=== PATIENT | male | born 1970 | race American Indian/Alaskan Native ===

== ENCOUNTER 2019-12-13 21:49 | Emergency (ER) | payer SELFPAY ==
[2019-12-13] MEDS ORDERED: IBUPROFEN 800 MG TAB PO ONE (21:59)
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
[2019-12-14 00:03] VITALS: BP 143/92
== END 2019-12-13 23:39 | disposition home or self-care (01) ==
LOC: ED 21:49
DX: M54.9 Dorsalgia, unspecified (principal); M25.552 Pain in left hip; I10 Essential (primary) hypertension; E11.9 Type 2 diabetes mellitus without complications; Z79.899 Other long term (current) drug therapy; Z79.84 Long term (current) use of oral hypoglycemic drugs; V03.09XA Pedestrian with other conveyance injured in collision with car, pick-up truck or van in nontraffic accident, initial encounter; Y93.89 Activity, other specified; Y92.410 Unspecified street and highway as the place of occurrence of the external cause; Y99.8 Other external cause status
CPT/HCPCS: 72100; 73521